=== PATIENT | female | born 1990 | race Caucasian/White ===

== ENCOUNTER 2017-11-24 22:12 | Inpatient (IN) ==
[~2017-11-24 22:12] MED LIST: *HR* Nalbuphine 10 MG/ML AMPUL IVP PRN; Famotidine 20 MG/2 ML VIAL IVP PRN; Metoclopramide 10 MG/2 ML VIAL IVP PRN; Naloxone 0.4 MG/ML INJ IVP PRN; Ondansetron 4 MG/2 ML VIAL IVP PRN; Ringers Solution, Lactated 1,000 ML IVC SCH
[2017-11-24 22:19] LABS: Eosinophils % 1.2 %; Hematocrit 33.7 % (35.3-44.9); Hemoglobin 11.7 g/dL (11.5-15.4); Immature Granulocytes % 0.9 % (0-4); Lymphocytes % 15.9 %; Mean Corpuscular HGB Conc 34.7 g/dL (31.6-35.5); Mean Corpuscular Hemoglobin 28.8 pg (28.0-33.3); Mean Platelet Volume 8.8 fL (9.4-12.4); Monocytes % 5.9 %; Platelet Count 169 K/mcL (140-400); Red Blood Count 4.06 M/mcL (3.82-4.97); Red Cell Distribution Width 13.5 % (11.5-14.5); Segmented Neutrophils % 75.9 %
[2017-11-24 22:20] LABS: Basophils % 0.2 %; Eosinophils # 0.1 K/mcL (0.0-0.6); Lymphocytes # 1.4 K/mcL (0.6-4.6); Monocytes # 0.5 K/mcL (0.0-1.3); Neutrophils # 6.8 K/mcL (1.6-8.9)
[2017-11-24 22:38] LABS: Amphetamine Screen,Urine Negative ng/mL (Cutoff=1000); Barbiturate Screen,Urine Negative ng/mL (Cutoff=200); Benzodiazepines Screen,Urine Negative ng/mL (Cutoff=200); Cannabinoid Screen,Urine Negative ng/mL (Cutoff = 50); Cocaine Screen,Urine Negative ng/mL (Cutoff= 300); Opiate Screen,Urine Negative ng/mL (Cutoff=300); Phencyclidine Screen,Urine Negative ng/mL (Cutoff=25)
--- NOTE | 2017-11-24 22:45 | OB/GYN History & Physical ---
Date of Encounter: 11/24/17 Time of Encounter: 22:42 Assessment and Plan (1) 39 weeks gestation of Current visit: Yes Status: Acute Admit to labor and delivery for onset of labor Pt consented for TOLAC Nubain or Epidural as desired Continuous monitoring Anticipate Vaginal Delivery Dr. Daniel is the OB dynamics ax consultant History of Present Illness Chief complaint: Onset of Labor HPI: Ms. Trevino is a 27 year old female at 39 weeks 3 days who presents with contractions. Per pt, contractions started about 5 hours ago, and have intensified since then currently every 3-5 minutes. Additionally notes leakage of clear fluid since she has arrived to Labor and Delivery. Endorses good movement. Denies vaginal bleeding. History of during 1st , and Section due to failure to progress during 2nd . Would like TOLAC. Denies headache, blurry vision, dizziness, lightheadedness, SOB, chest pain, nausea, vomiting, diarrhea, dysuria, vaginal discharge. care with Dr. Pritchett thus far. Labs: Blood: B negative Ab Screen: Negative GBS: negative Hep B Surf Ag: negative HIV Ab: Negative Treponema Ab: Negative Rubella: Immune Varicella: Immune G/C: negative Past Med Surg Social Fam HX - Past Medical History Attestation: Yes The following information was validated with the patient. Source: patient Medical history: non-contributory Psychiatric history: no psych history - Past Surgical History Surgical History: - Social History Smoking Status: Former smoker Smokeless Tobacco Status: No Alcohol use: none Drug use: none - Family History Mother Age: 51 Living Status: Still Living Hx Family Cardiac Disorders: No Hx Family Respiratory Disorders: No Hx Family Cancer: No Hx Family GI Disorders: No Hx Family Genitourinary Disorders: No Hx Family Endocrine Disorder: No Hx Family Musculoskeletal Disorders: No Hx Family Neuromuscular Disorders: No Hx Family Neurologic Disorders: No Hx Family HEENT Disorders: No Hx Family Autoimmune Disorders: No Hx Family Reproductive Disorders: No Hx Family Psychosocial Disorders: Yes (mental healt per pt) Hx Family Medical Disorders: No Obstetrical History - Pregnancies : 3 Para: 2 Term: 2 : 0 Ab's: 0 Livin Medications and Allergies Formula Tablet 1 tab PO DAILY 11/24/17 [History] 3 Allergy/AdvReac Type Severity Reaction Status Date / Time Erythromycin Base Allergy Hives Verified 11/24/17 22:01 [From Pediazole] Sulfisoxazole Allergy Hives Verified 11/24/17 22:01 [From Pediazole] Review of System OB All systems PM: reviewed and no additional remarkable complaints except as stated Exam - Vital Signs Vital signs: Initial Vital Signs Pulse Resp BP 82 16 111/71 11/24/17 22:04 11/24/17 22:04 11/24/17 22:04 - Constitutional Constitutional: well developed, well nourished, no acute distress, average body habitus - HEENT HEENT: EOMI, Normocephaly, Mucus Membranes Moist - Neck Neck exam: full ROM - Lungs Respiratory exam: CTAB - Cardiovascular Cardiovascular exam: RRR, +S1, +S2 - Abdomen Abdomen: Present: bowel sounds normal, gravid, non tender - Extremities Extremities exam: full ROM, normal capillary refill, normal inspection, warm, radial pulses palpable and symmetrical Deep Tendon Reflex Grade: 3+ Normal But Brisk - Cervix Dilation: 4 (Per RN) Effacement: 80 Station: -2 - Comments Comments: Category I tracing; FHR = 135 Results Result Diagrams: 11/24/17 21:41 Abnormal lab results Hct 33.7 % (35.3-44.9) L 11/24/17 21:41 MPV 8.8 fL (9.4-12.4) L 11/24/17 21:41 All other labs normal. - VTE Reasons for not Prescribing Prophylaxis: Treatment not Indicated - Low risk for VTE
--- NOTE | 2017-11-25 00:19 | OB Labor Progress Note ---
Date of Encounter: 11/25/17 Time of Encounter: 00:17 Labor Progress Note - Subjective Subjective: Pt getting more uncomfortable. - Cervix Cervix: 6-7/90/-1 - Heart Tones Heart Tones: RNST - [place]: uc's q2-3 min of moderate intensity - Plan Plan: Expect
--- NOTE | 2017-11-25 00:25 | Anesthesia Evaluation PreOp ---
Date of Encounter: 11/25/17 Time of Encounter: 00:23 - Past History Planned Operation: alka Cardiac History: Denies any Significant Hx Pulmonary History: Denies Any Significant HX GUITAR MAKER History: Denies Any Significant HX Other Medical History: GERD Anesthesia History: No Prior Anesthetic Complications, Past Anesthesia ( previous c/s) : Yes Test: Positive Alcohol Use: none Drug use: none Medications and Allergies Formula Tablet 1 tab PO DAILY 11/24/17 [History] 3 Allergy/AdvReac Type Severity Reaction Status Date / Time Erythromycin Base Allergy Hives Verified 11/24/17 22:01 [From Pediazole] Sulfisoxazole Allergy Hives Verified 11/24/17 22:01 [From Pediazole] - Meds/Allergy Pre-op Review Medications Reviewed: Yes Allergies Reviewed: Yes Beta Blockers on Current Med List: No Anesthesia Results - Labs 11/24/17 21:41 Anesthesia Exam 112/68 96 fht 136 Height: 5'3" Weight: 120 Pain Scale: 8 Pain Scale Used: Numeric (1 - 10) - HEENT Pupil (Motor): Pupils equal Mallampati: II Teeth: Normal Oral Opening: Greater than 3 - GUITAR MAKER LOC: Oriented GUITAR MAKER Motor: Normal RUE, Normal LUE, Normal RLE, Normal LLE, Normal Face GUITAR MAKER Sensory: Normal: RUE, LUE, RLE, LLE, Face - Cardiac Rhythm: Regular Murmur: None - Pulmonary Breath Sounds: bilateral Clear Respiratory Effort: Symmetrical Anesthesia Assess/Plan ASA Score: 2 Modified [place] Scale for Level of Consciousness: Cooperative, oriented, and tranquil Anesthetic Plan: MAC Autologous Blood: No Monitoring Plan: Standard Monitors Recovery Plan: Other (risks discssed questions answered, consented)
[2017-11-25] MEDS ORDERED: *HR* Ropivacaine/PF 0.2% 20 ML VIAL EP ONE (00:27)
[2017-11-25] MEDS ORDERED: *HR* FentaNYL (PF) 100 MCG/2 ML VIAL EP ONE (00:27)
[2017-11-25] MEDS ORDERED: *HR* FentaNYL (PF) 100 MCG/2 ML VIAL ONE (00:29)
[2017-11-25] MEDS ORDERED: Lidocaine -MPF 2% 5 ML VIAL ONE (00:29)
[2017-11-25] MEDS ORDERED: *HR* Ropivacaine/PF 0.2% 20 ML VIAL ONE (00:29)
[2017-11-25] MEDS ORDERED: Epidural Premix (fent/bupiv) 110 ML EP SCH (00:30)
[2017-11-25] MEDS ORDERED: Epidural Premix (fent/bupiv) 110 ML EP ONE (00:31)
--- NOTE | 2017-11-25 00:56 | Anesthesia Procedures ---
Date of Encounter: 11/25/17 Time of Encounter: 00:54 Procedures: Anesthesia - Epidural/Spinal Patient ID/Chart reviewed: Yes Patient examined: Yes OB Eval: Gestational age: 39 OB Eval: : 3 OB Eval: Hx Para: 2 OB Eval: Dilated at (cm): 6 OB Eval: Contractions: Non-stressed pattern Consent Obtained: Yes Supplemental Oxygen: None/Room Air Site Prep: Aseptic Technique, Sterile prep and drape, 0.5% Chlorhexidine/Alcohol Patient position: upright Local Anesthetic: Lidocaine 1% Amount of Local Anesthetic used: 3 Touhy Needle Gauge: 18 Touhy Needle Depth (cm): 6 Catheter Depth at Skin (cm): 15 Test Dose (1.5% Lido + Epi): Volume given (mls): 3 Test Dose Result: Negative Loading Dose: Fentanyl (mcg): 100 Loading Dose: Other: rop 0.2% 10cc Loading Dose Administered: Thru Touhy Needle Infusion Med: 0.125% Bupivacaine w/ 2 mcg/ml Fentanyl Infusion Rate (mls/hr): 15 (pcea 5cc q30") Catheter Secured in Place: Tegaderm Interspace Used: L2-L3 Loss of Resistance (TANO): Yes Blood: No CSF: No Paresthesia: No Procedure: aseptic, uriah well, VSS, effective Vitals + FHT's: 124/80 88 fht 134
[2017-11-25] MEDS ORDERED: EPHEDrine 50 MG/ML VIAL ONE (01:31)
--- NOTE | 2017-11-25 01:57 | OB Labor Progress Note ---
Date of Encounter: 11/25/17 Time of Encounter: 01:55 Labor Progress Note - Subjective Subjective: CTSP for bradycardia to 60's for 3 min. Pt had just recieved epidural and bp 60's/30's. She was given ephedrine x2 and IVF bolus and repositioned with improvement in FHT's to low 100's with good variability and improved BP. Pt is comfortable and cervix is 7-8/c/-1 - Cervix Cervix: 7-8/100/-1 - Mar-Mac Mar-Mac: uc's q 50-90 sec. - Interventions Interventions: Pt given IVF bolus, ephedrine and repostioning. - Plan Plan: Expect , follow FHT's closely.
--- NOTE | 2017-11-25 02:35 | OB Labor Progress Note ---
Date of Encounter: 11/25/17 Time of Encounter: 02:32 Labor Progress Note - Subjective Subjective: CTSP for FHT's to 60's for 5 min with slow return to baseline low 110's. Pt comfortable. - Vital Signs Vital Signs: 122 /74 - Cervix Cervix: 8-9/100/0 - Heart Tones Heart Tones: 110's-110's with good variability - [place]: UC's q 90 sec. - Plan Plan: Pt again had deceleration that has now resolved. She has made more cervical change though not yet complete. D/W pt again option of proceeding with c- section, however given return to baseline of FHT's will cont. close observation.
--- NOTE | 2017-11-25 04:40 | OB/GYN Procedure Note ---
Delivery - Delivery Date: 11/25/17 Provider: Guille Daniel Intrapartum events: none Delivery induction: none Delivery augmentation: rupture of membranes Delivery monitor: external FHT, external uterine Anesthesia: epidural Quantitated Blood Loss: 200 - Infant (s) A Delivery Date: 11/25/17 Infant Delivery Time: 03:55 Presentation: vertex Position: RUSTY Gender: Male Viability: Viable Weight Gram: 4.05 kg at 1 minute: 8 at 5 mins: 9 Shoulder Dystocia: not encountered Specimens collected: cord blood Placenta: spontaneous Cord: nuchal cord, true knot - Repair Episiotomy: none Laceration Description: Perineal - 1st Degree - Complications Delivery complications: none Delivery comments: Pt was sucessful - Disposition Mom disposition: stable in LDR disposition: stable in LDR - Comments Comments: Patient's 19-year-old 3 now. Female presents her 9 weeks gestation in labor. Patient had a history of prior section for failure to progress. Part of this tube had a successful vaginal delivery. She was aware of risks of trial labor after section and signed appropriate consent to proceed with trial of labor after section. Patient reached complete dilatation with 2 maternal effort with spontaneous vaginal delivery of liveborn male infant from left occiput anterior presentation. weight was 8 lbs. 15 oz. with Apgars of 8 at 1 minute and 9 at 5 minutes to delivery prolonged decelerations that delivery was found to be nuchal cord 1 tight true knot in cord. This was also relatively small amount of Radha's jelly within the cord. There was first-degree laceration was repaired with 3-0 Vicryl under epidural anesthesia. Placenta was delivered intact
[2017-11-25] MEDS ORDERED: Oxytocin 20 units/ LR 1000 mL 20 UNIT/1,000 ML BAG IVC ONE ×2 (05:58→06:23)
[2017-11-25] MEDS ORDERED: Rho Immune Globulin 1,500 UNIT SYRINGE IM PRN (06:23)
[2017-11-25] MEDS ORDERED: Oxytocin 20 units/ LR 1000 mL 20 UNIT/1,000 ML BAG IVC SCH (06:23)
[2017-11-25] MEDS ORDERED: Acetaminophen 325 MG TABLET PO PRN (06:23)
[2017-11-25] MEDS ORDERED: Measles/Mumps/Rubella Vacc 0.5 ML VIAL SQ PRN (06:23)
[2017-11-25] MEDS: Prenatal Vit/FA 1 EACH TABLET PO SCH (08:13)
[2017-11-25] MEDS: Ibuprofen 600 MG TABLET PO PRN ×2 (14:40→21:26)
[2017-11-26 02:20] LABS: Basophils % 0.3 %; Eosinophils # 0.1 K/mcL (0.0-0.6); Hematocrit 28.9 % (35.3-44.9); Immature Granulocytes % 0.9 % (0-4); Lymphocytes # 1.9 K/mcL (0.6-4.6); Lymphocytes % 18.2 %; Mean Corpuscular HGB Conc 33.6 g/dL (31.6-35.5); Mean Corpuscular Volume 86.5 fL (83.0-100.0); Monocytes # 0.6 K/mcL (0.0-1.3); Monocytes % 5.4 %; Neutrophils # 7.8 K/mcL (1.6-8.9); Platelet Count 168 K/mcL (140-400); Red Blood Count 3.34 M/mcL (3.82-4.97); Red Cell Distribution Width 13.3 % (11.5-14.5); Segmented Neutrophils % 74.2 %
[2017-11-26 02:26] LABS: Hemoglobin 9.7 g/dL (11.5-15.4)
[2017-11-26] MEDS: Prenatal Vit/FA 1 EACH TABLET PO SCH (07:54)
[2017-11-26 08:00] VITALS: BP 99/57
--- NOTE | 2017-11-26 11:00 | Discharge Summary ---
Date of Encounter: 11/26/17 Time of Encounter: 10:55 - Discharge Diagnosis (1) Vaginal delivery Priority: Primary Status: Acute Comments: Stable in PP, bleeding minimal, pain well managed on po pain medication, desires discharge. (2) anemia Priority: Primary Status: Acute Comments: Will discharge home on iron - Discharge Medications Prescriptions: Ibuprofen [Motrin] 600 mg PO Q6HR PRN #60 tablet PRN Reason: Mild Pain Docusate [Colace] 100 mg PO BID #30 capsule Ferrous Sulfate 325 mg PO DAILY #60 tablet Home Medications: Formula Tablet 1 tab PO DAILY 11/24/17 [History] Acetaminophen [Tylenol] 650 mg PO Q6HR PRN tablet 11/26/17 [Rx] Docusate [Colace] 100 mg PO BID #30 capsule 11/26/17 [Rx] Ferrous Sulfate 325 mg PO DAILY #60 tablet 11/26/17 [Rx] Ibuprofen [Motrin] 600 mg PO Q6HR PRN #60 tablet 11/26/17 [Rx] Vit/FA 1 each PO DAILY #0 tablet 11/26/17 [Rx] Allergies/Adverse Reactions: 3 Allergy/AdvReac Type Severity Reaction Status Date / Time Erythromycin Base Allergy Hives Verified 11/24/17 22:01 [From Pediazole] Sulfisoxazole Allergy Hives Verified 11/24/17 22:01 [From Pediazole] Data Procedures and tests throughout hospitalization: Laboratory Tests 11/24/17 11/24/17 11/25/17 21:40 21:41 05:15 WBC 9.0 RBC 4.06 Hgb 11.7 Hct 33.7 L MCV 83.0 MCH 28.8 MCHC 34.7 RDW 13.5 Plt Count 169 MPV 8.8 L Immature Gran % 0.9 Seg Neutrophils % 75.9 Lymphocytes % 15.9 Monocytes % 5.9 Eosinophils % 1.2 Basophils % 0.2 Neutrophils # 6.8 Lymphocytes # 1.4 Monocytes # 0.5 Eosinophils # 0.1 Basophils # 0.0 Urine Opiates Screen Negative Ur Barbiturates Screen Negative Ur Phencyclidine Scrn Negative Ur Amphetamines Screen Negative U Benzodiazepines Scrn Negative Urine Cocaine Screen Negative U Marijuana (THC) Screen Negative Ur Drug Screen Interp See Below Screen NEGATIVE Baby's Blood Type B RH POSITIVE Mother's Blood Type B RH NEGATIVE Rhogam Indicated YES Rhogam Req for Mother 1 11/26/17 01:59 WBC 10.5 RBC 3.34 L Hgb 9.7 L D Hct 28.9 L MCV 86.5 MCH 29.0 MCHC 33.6 RDW 13.3 Plt Count 168 MPV 9.0 L Immature Gran % 0.9 Seg Neutrophils % 74.2 Lymphocytes % 18.2 Monocytes % 5.4 Eosinophils % 1.0 Basophils % 0.3 Neutrophils # 7.8 Lymphocytes # 1.9 Monocytes # 0.6 Eosinophils # 0.1 Basophils # 0.0 Urine Opiates Screen Ur Barbiturates Screen Ur Phencyclidine Scrn Ur Amphetamines Screen U Benzodiazepines Scrn Urine Cocaine Screen U Marijuana (THC) Screen Ur Drug Screen Interp Screen Baby's Blood Type Mother's Blood Type Rhogam Indicated Rhogam Req for Mother Labs on day of discharge: Labs from last 24 hours 11/26/17 11/25/17 01:59 05:15 WBC 10.5 RBC 3.34 L Hgb 9.7 L D Hct 28.9 L MCV 86.5 MCH 29.0 MCHC 33.6 RDW 13.3 Plt Count 168 MPV 9.0 L Immature Gran % 0.9 Seg Neutrophils % 74.2 Lymphocytes % 18.2 Monocytes % 5.4 Eosinophils % 1.0 Basophils % 0.3 Neutrophils # 7.8 Lymphocytes # 1.9 Monocytes # 0.6 Eosinophils # 0.1 Basophils # 0.0 Screen NEGATIVE Baby's Blood Type B RH POSITIVE Mother's Blood Type B RH NEGATIVE Rhogam Indicated YES Rhogam Req for Mother 1 Date of admission: 11/24/17 23:33 Primary care physician: Elizabeth Carrillo MD Consults: 11/25/17 06:23 Consult to Prototype Deicer Assembler [CONS] Routine Comment: Vaginal delivery, consult needed Discharging clinician: Lula Grant Anticipated date of discharge: 11/26/17 - Patient Status Disposition: Home, Self-Care Condition: Good Functional capacity at discharge: independent ambulation Overall status at discharge: patient is back to baseline - Discharge Instructions Instructions: Anemia (GEN) Follow Up With: Elizabeth Carrillo MD [Primary Care Provider] - - Diet and Activity Activity: resume usual activities as tolerated Diet: regular diet Hospital Course Reason for admission: active labor, IUP at term Delivery: Episiotomy: none Laceration: 1st degree Other procedures: none complications: none Discharge diagnosis: IUP at term delivered [place] baby: male Hospital course: Delivery - Delivery Date: 11/25/17 Provider: Guille Daniel Intrapartum events: none Delivery induction: none Delivery augmentation: rupture of membranes Delivery monitor: external FHT, external uterine Anesthesia: epidural Quantitated Blood Loss: 200 - (s) A Delivery Date: 11/25/17 Delivery Time: 03:55 Presentation: vertex Position: RUSTY Gender: Male Viability: Viable Weight Gram: 4.05 kg at 1 minute: 8 at 5 mins: 9 Shoulder Dystocia: not encountered Specimens collected: cord blood Placenta: spontaneous Cord: nuchal cord, true knot - Repair Episiotomy: none Laceration Description: Perineal - 1st Degree - Complications Delivery complications: none Delivery comments: Pt was sucessful - Disposition Mom disposition: stable in PP, desires discharge Time Attestation: Total time spent providing and/or coordinating discharge services: Time Spent: Less than 30 minutes Exam - Constitutional Vitals: Temp Pulse Resp BP Pulse Ox 97.3 F L 64 16 99/57 97 11/26/17 07:30 11/26/17 07:30 11/26/17 07:30 11/26/17 07:30 11/25/17 20:56 General appearance IM: A&O X 3 - Respiratory Respiratory exam: Present: CTAB - Cardiovascular Cardiovascular exam IM: Present: diastolic murmur - GI/Abdominal GI/Abdominal exam IM: normal bowel sounds - Uterine Tone: Firm Uterus Position: 1 Finger Below Umbilicus - Extremities Exam Extremities exam IM: Present: normal capillary refill, normal inspection - Neurological Exam Neurological exam: normal gait, oriented X3 - Psychiatric Additional comments: reports good mood
== END 2017-11-26 12:31 | disposition home or self-care (01) | DRG 560 ==
LOC: 1NENULAB → 1NENUOBS 11-25 06:23
PROVIDERS: ADMIT Advanced Practice Midwife; ATTEND Advanced Practice Midwife

== ENCOUNTER 2020-01-19 21:25 | Observation (INO) | END 2020-01-19 23:04 | disposition home or self-care (01) | LOC: 1NENULAB | PROVIDERS: ADMIT Obstetrics & Gynecology; ATTEND Obstetrics & Gynecology ==

== ENCOUNTER 2020-01-21 11:49 | Inpatient (IN) ==
[2020-01-21] MEDS ORDERED: FLU Vac QV 20-21 (6Month+)/PF 0.5 ML SYRINGE IM ONE (12:19)
[2020-01-21] MEDS ORDERED: Famotidine 20 MG/2 ML VIAL IVP PRN (12:47)
[2020-01-21] MEDS ORDERED: Naloxone 0.4 MG/ML INJ IVP PRN (12:47)
[2020-01-21] MEDS ORDERED: Lidocaine 1% 20 ML MDV INFILT PRN (12:47)
[2020-01-21] MEDS ORDERED: Metoclopramide 10 MG/2 ML VIAL IVP PRN ×2 (12:47→22:39)
[2020-01-21] MEDS ORDERED: Ondansetron 4 MG/2 ML VIAL IVP PRN ×2 (12:47→22:39)
[2020-01-21] MEDS ORDERED: Ringers Solution, Lactated 1,000 ML IVC SCH ×2 (13:00→22:39)
[2020-01-21 13:03] LABS: Eosinophils % 1.5 %; Immature Platelets 4.1 % (1.1-6.1)
[2020-01-21 13:06] LABS: Basophils % 0.5 %; Eosinophils # 0.1 K/mcL (0.0-0.6); Hematocrit 37.4 % (35.3-44.9); Hemoglobin 12.5 g/dL (11.5-15.4); Immature Granulocytes % 0.9 % (0-4); Lymphocytes # 1.6 K/mcL (0.6-4.6); Lymphocytes % 20.3 %; Mean Corpuscular HGB Conc 33.4 g/dL (31.6-35.5); Mean Corpuscular Hemoglobin 29.1 pg (28.0-33.3); Mean Platelet Volume 9.9 fL (9.4-12.4); Monocytes # 0.5 K/mcL (0.0-1.3); Monocytes % 6.1 %; Neutrophils # 5.7 K/mcL (1.6-8.9); Platelet Count 134 K/mcL (140-400); Red Cell Distribution Width 17.2 % (11.5-14.5); Segmented Neutrophils % 70.7 %; White Blood Count 8.1 K/mcL (4.3-11.1)
[2020-01-21 13:12] LABS: Amphetamine Screen,Urine Negative ng/mL (Cutoff=1000); Barbiturate Screen,Urine Negative ng/mL (Cutoff=200); Benzodiazepines Screen,Urine Negative ng/mL (Cutoff=200); Cannabinoid Screen,Urine Negative ng/mL (Cutoff = 50); Cocaine Screen,Urine Negative ng/mL (Cutoff= 300); Opiate Screen,Urine Negative ng/mL (Cutoff=300); Phencyclidine Screen,Urine Negative ng/mL (Cutoff=25)
[2020-01-21 13:26] LABS: Anisocytosis 1+ (Not Present); Platelet Estimate Normal (Normal)
[2020-01-21 14:51] LABS: Adenovirus Not Detected (Not Detect); Bordetella Pertussis Not Detected (Not Detect); Chlamydophila pneumoniae Not Detected (Not Detect); Coronavirus 229E Not Detected (Not Detect); Coronavirus HKU1 Not Detected (Not Detect); Coronavirus NL63 Not Detected (Not Detect); Coronavirus OC43 Not Detected (Not Detect); Human Metapneumovirus Not Detected (Not Detect); Human Rhinovirus/Enterovirus Not Detected (Not Detect); Influenza A Subtype 2009 H1 Not Detected (Not Detect); Influenza B Not Detected (Not Detect); Mycoplasma pneumoniae Not Detected (Not Detect); Parainfluenza Virus 1 Not Detected (Not Detect); Parainfluenza Virus 2 Not Detected (Not Detect); Parainfluenza Virus 3 Not Detected (Not Detect); Parainfluenza Virus 4 Not Detected (Not Detect); Respiratory Syncytial Virus Not Detected (Not Detect); SARS-CoV-2 Not Detected (Not Detect)
[2020-01-21] MEDS ORDERED: *HR* FentaNYL (PF) 100 MCG/2 ML VIAL ONE (15:00)
[2020-01-21] MEDS ORDERED: EPHEDrine 50 MG/ML VIAL ONE (15:00)
[2020-01-21] MEDS ORDERED: *HR* Midazolam HCl 2 MG/2 ML VIAL ONE (15:00)
[2020-01-21] MEDS ORDERED: *HR* Morphine Sulfate/PF 10 MG/10 ML AMPUL ONE (15:00)
[2020-01-21] MEDS ORDERED: Ondansetron 4 MG/2 ML VIAL ONE (15:01)
[2020-01-21] MEDS ORDERED: Dexamethasone 4 MG/ML VIAL ONE (15:01)
[2020-01-21] MEDS ORDERED: Ketorolac 30 MG/ML VIAL ONE (18:15)
[2020-01-21] MEDS ORDERED: *HR* Oxytocin 10 UNIT/ML VIAL IM ONE ×3 (19:04→20:23)
[2020-01-21] MEDS ORDERED: Ringers Solution, Lactated 1,000 ML ONE ×2 (19:39→20:23)
[2020-01-21] MEDS ORDERED: *HR* Succinylcholine 200 MG/10 ML VIAL IVP ONE (20:23)
[2020-01-21] MEDS ORDERED: Sennosides 8.6 MG TABLET PO PRN (22:39)
[2020-01-21] MEDS ORDERED: Rho Immune Globulin 1,500 UNIT SYRINGE IM ONE (22:39)
[2020-01-21] MEDS ORDERED: Simethicone 80 MG TAB.CHEW PO PRN (22:39)
[2020-01-21] MEDS ORDERED: Oxytocin 20 units/ LR 1000 mL 20 UNIT/1,000 ML BAG IVC SCH (22:39)
[2020-01-22] MEDS: Ibuprofen 600 MG TABLET PO PRN ×4 (00:10→21:37)
[2020-01-22 07:16] LABS: Basophils % 0.2 %; Hematocrit 33.5 % (35.3-44.9); Immature Granulocytes % 0.5 % (0-4); Lymphocytes # 1.3 K/mcL (0.6-4.6); Lymphocytes % 11.6 %; Mean Corpuscular HGB Conc 32.8 g/dL (31.6-35.5); Mean Corpuscular Hemoglobin 28.4 pg (28.0-33.3); Mean Corpuscular Volume 86.6 fL (83.0-100.0); Mean Platelet Volume 9.4 fL (9.4-12.4); Monocytes # 0.8 K/mcL (0.0-1.3); Monocytes % 7.6 %; Neutrophils # 8.8 K/mcL (1.6-8.9); Platelet Count 123 K/mcL (140-400); Red Blood Count 3.87 M/mcL (3.82-4.97); Red Cell Distribution Width 16.8 % (11.5-14.5); Segmented Neutrophils % 80.1 %
[2020-01-22] MEDS: Prenatal Vit/FA 1 EACH TABLET PO SCH (07:57)
[2020-01-22] MEDS: Famotidine 20 MG TABLET PO SCH (07:57)
[2020-01-22] MEDS ORDERED: NON-FORMULARY MEDICATION 1 EACH EACH (Prenatal Formula Tablet 1 TAB) PO SCH (09:00)
[2020-01-22] MEDS: *HR* OxyCODONE/APAP 5/325 TABLET PO PRN ×2 (11:31→17:25)
[2020-01-22] MEDS ORDERED: Rho Immune Globulin 1,500 UNIT SYRINGE IM ONE (17:16)
[2020-01-23] MEDS: Ibuprofen 600 MG TABLET PO PRN (04:27)
[2020-01-23] MEDS: Prenatal Vit/FA 1 EACH TABLET PO SCH (08:32)
[2020-01-23] MEDS: Famotidine 20 MG TABLET PO SCH (08:32)
[2020-01-23 08:52] VITALS: BP 111/71
== END 2020-01-23 11:30 | disposition home or self-care (01) | DRG 539 ==
LOC: 1NENULAB → OBSVTOIN 11:49 → 1NENUOBS 22:43
PROVIDERS: ADMIT Student in an Organized Health Care Education/Training Program; ATTEND Student in an Organized Health Care Education/Training Program